=== PATIENT | male | born 1960 | race Caucasian/White ===

== ENCOUNTER 2016-12-18 09:37 | Inpatient (IN) | payer OTHER ==
[2016-12-18 10:15] VITALS: BMI 29.7
--- NOTE | 2016-12-18 15:30 | HP ---
CIWA Score - CIWA Score Nausea/Vomitin Muscle Tremors: 2 Anxiety: 0-No Anxiety, at Ease Agitation: 0-Normal Activity Paroxysmal Sweats: 2 Orientation: 4Disoriented Place/Person Tacttile Disturbances: 2-Mild Itch/Numbness/Burn Auditory Disturbances: 2-Mild Harshness/Frighten Visual Disturbances: 2-Mild Sensitivity Headache: 2-Mild CIWA-Ar Total Score: 21 Admission ROS BHS - HPI Chief Complaint: Pt. is here to Detox from Alcohol. Allergies/Adverse Reactions: Allergies Allergy/AdvReac Type Severity Reaction Status Date / Time No Known Allergies Allergy Verified 12/18/16 10:37 History of Present Illness: Pt. is a 55 YO male here to Detox from Alcohol. This is pt.'s first Detox admission at [facility]. Longest period of sobriety: 5 days. 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 / Assessment.) - Ebola screening Have you traveled outside of the country in the last 21 days: No Have you had contact with anyone from an Ebola affected area: No Have you been sick,other than usual withdrawal symptoms: No Do you have a fever: No - Review of Systems Constitutional: Diaphoresis, Loss of Appetite, Malaise, Night Sweats, Changes in sleep, Unexplained wgt Loss EENT: reports: Dental Problems (Several missing teeth.) Respiratory: reports: No Symptoms reported Cardiac: reports: No Symptoms Reported GI: reports: Diarrhea, Nausea, Poor Appetite, Vomiting, Abdominal cramping, Other (GERD) : reports: No Symptoms Reported Musculoskeletal: reports: Joint Swelling, Neck Pain (Bilateral lower legs and feet (pt.reports that he has been living in [address] and that he has been spending a great deal of time standing lately).) Integumentary: reports: No Symptoms Reported Neuro: reports: Headache, Seizure, Tremors Endocrine: reports: No Symptoms Reported Hematology: reports: No Symptoms Reported Psychiatric: reports: Judgement Intact, Mood/Affect Appropiate, Anxious, Depressed (No previous meds.) Other Systems: Reviewed and Negative Patient History - Patient Medical History Hx Anemia: No Hx Asthma: No Hx Chronic Obstructive Pulmonary Disease (COPD): No Hx Cancer: No Hx Cardiac Disorders: No Hx Congestive Heart Failure: No Hx Hypertension: Yes (No meds.) Hx Hypercholesterolemia: Yes (No meds.) Hx Pacemaker: No HX Cerebrovascular Accident: No Hx Seizures: No Hx Dementia: No Hx Diabetes: No Hx Gastrointestinal Disorders: No (GERD.) Hx Liver Disease: Yes (Cirrhosis.) Hx Genitourinary Disorders: No Hx Sexually Transmitted Disorders: No Hx Renal Disease (ESRD): No Hx Thyroid Disease: No Hx Human Immunodeficiency Virus (HIV): No Hx Hepatitis C: No Hx Depression: Yes (No treatment.) Hx Suicide Attempt: Yes (thought of jumping off window 4 mos. ago; PT. DENIES CURRENT SI/HI.) Hx Bipolar Disorder: No Hx Schizophrenia: No Other Medical History: DENIES. - Patient Surgical History Past Surgical History: Yes Hx Neurologic Surgery: No Hx Cataract Extraction: No Hx Cardiac Surgery: No Hx Lung Surgery: No Hx Breast Surgery: No Hx Breast Biopsy: No Hx Abdominal Surgery: No Hx Appendectomy: No Hx Cholecystectomy: No Hx Genitourinary Surgery: No Hx Section: No Hx Orthopedic Surgery: Yes (fx, left hand in 07/26/1993) Anesthesia Reaction: No - PPD History Previous Implant?: Yes Documented Results: Negative w/o proof Implanted On Prior R Admission?: No PPD to be Administered?: Yes - Reproductive History Patient is a Female of Child Bearing Age (11 -55 yrs old): No (PATIENT IS MALE.) - Smoking Cessation Smoking history: Never smoked Have you smoked in the past 12 months: No Cigars Per Day: 0 Hx Chewing Tobacco Use: No Initiated information on smoking cessation: No - Substance & Tx. History Hx Alcohol Use: Yes Hx Substance Use: Yes Substance Use Type: Alcohol Hx Substance Use Treatment: No - Substances Abused Alcohol-vodka Route: Oral Frequency: Daily Amount used: 2-3 pts. Age of first use: 17 Date of Last Use: 12/17/16 Family Disease History - Family Disease History Family History: Denies Admission Physical Exam BHS - Vital Signs Vital Signs: Vital Signs - 24 hr 12/18/16 10:08 Temperature 95.7 F L Pulse Rate 84 Respiratory 20 Rate Blood Pressure 147/95 - Physical General Appearance: Yes: No Apparent Distress, Nourished, Appropriately Dressed , Tremorous, Anxious HEENTM: Yes: Hearing grossly Normal, Normocephalic, Normal Voice, ABBY, Pharynx Normal Respiratory: Yes: Chest Non-Tender, Lungs Clear, No Respiratory Distress, No Accessory Muscle Use Neck: Yes: No masses,lesions,Nodules, Supple, Trachea in good position Breast: Yes: Breast Exam Deferred Cardiology: Yes: Regular Rhythm, Regular Rate, S1, S2 Abdominal: Yes: Normal Bowel Sounds, Non Tender, Soft, Protuberent Genitourinary: Yes: Within Normal Limits Back: Yes: Decreased Range of Motion Musculoskeletal: Yes: Gait Steady, Other Extremities: Yes: Tremors, Other (Mild swelling noted in bilateral legs. Patient reports that swelling started several days ago and that he feels discomfort in bilateral lower legs and in the soles of bilateral feet primarily when walking or stanidng for prolonged periods. No redness or skin wounds noted in affected areas.) Neurological: Yes: Alert, Normal Mood/Affect, Normal Response, Disoriented (To Current location.) Integumentary: Yes: Normal Color, Dry, Warm Lymphatic: Yes: Within Normal Limits - Diagnostic (1) Alcohol dependence with uncomplicated withdrawal Current Visit: Yes Status: Acute (2) History of hypertension Current Visit: Yes Status: Suspected (3) Depression (emotion) Current Visit: Yes Status: Chronic Qualifiers: Depression Type: unspecified Qualified Code(s): F32.9 - Major depressive disorder, single episode, unspecified Comment: No medication. (4) GERD (gastroesophageal reflux disease) Current Visit: Yes Status: Chronic Qualifiers: Esophagitis presence: esophagitis presence not specified Qualified Code(s): K21.9 - Gastro-esophageal reflux disease without esophagitis (5) Liver cirrhosis Current Visit: Yes Status: Suspected Qualifiers: Hepatic cirrhosis type: unspecified hepatic cirrhosis Ascites presence : without ascites Qualified Code(s): K74.60 - Unspecified cirrhosis of liver (6) Heart murmur Current Visit: Yes Status: Chronic Cleared for Admission BHS - Detox or Rehab [facility] Level of Care: Medically Managed Detox Regimen/Protocol: Librium [facility] Breath Alcohol Content Breath Alcohol Content: 0 Urine Drug Screen - Results Drug Screen Negative: Yes
[2016-12-18] MEDS ORDERED: MENTHOL/PHENOL 1 EACH UD MM PRN (16:36)
[2016-12-18] MEDS ORDERED: chlordiazePOXIDE HCL 25 MG CAPSULE PO ONE (16:36)
[2016-12-18] MEDS ORDERED: LOPERAMIDE HCL 2 MG CAPSULE PO PRN (16:36)
[2016-12-18] MEDS ORDERED: chlordiazePOXIDE HCL 25 MG CAPSULE PO PRN (16:36)
[2016-12-18] MEDS ORDERED: MAG HYDROX/AL HYDROX/SIMETH 30 ML UNIT-DOSE CUP PO PRN (16:36)
[2016-12-18] MEDS ORDERED: IBUPROFEN 400 MG TABLET (FP) PO PRN (16:36)
[2016-12-18] MEDS ORDERED: MAGNESIUM CITRATE 300 ML BOTTLE PO PRN (16:36)
[2016-12-18] MEDS ORDERED: MAGNESIUM HYDROX 2400MG/30ML ORAL SUSPENSION 30 ML CUP PO PRN (16:36)
[2016-12-18] MEDS ORDERED: diphenhydrAMINE HCL 50 MG CAPSULE PO PRN (16:36)
[2016-12-18] MEDS ORDERED: guaiFENesin/D-METHORPHAN HB 10 ML UNIT-DOSE CUPS PO PRN (16:36)
[2016-12-18] MEDS ORDERED: ACETAMINOPHEN 325 MG TABLET (FP) PO PRN (16:36)
[2016-12-18] MEDS ORDERED: hydrOXYzine PAMOATE 50 MG CAPSULE (FP) PO PRN (16:36)
[2016-12-18] MEDS ORDERED: P-EPHED 60MG/TRIPROLIDI 2.5MG TABLET PO PRN (16:36)
[2016-12-18] MEDS: chlordiazePOXIDE HCL 25 MG CAPSULE PO SCH ×2 (18:50→22:23)
[2016-12-18] MEDS: THIAMINE HCL 100 MG TABLET (FP) PO SCH (22:23)
[2016-12-18] MEDS: RANITIDINE HCL 150 MG TABLET (FP) PO SCH (22:23)
[2016-12-19 00:35] LABS: URINE APPEARANCE CLEAR; URINE BILIRUBIN NEGATIVE (NEGATIVE); URINE BLOOD NEGATIVE (NEGATIVE); URINE COLOR LTYELLOW; URINE GLUCOSE (UA) NEGATIVE (NEGATIVE); URINE KETONE NEGATIVE (NEGATIVE); URINE LEUK ESTERASE NEGATIVE (NEGATIVE); URINE NITRITE NEGATIVE (NEGATIVE); URINE PROTEIN NEGATIVE (NEGATIVE); URINE UROBILINOGEN NEGATIVE mg/dL (0.2-1.0)
[2016-12-19] MEDS: chlordiazePOXIDE HCL 25 MG CAPSULE PO SCH ×4 (05:32→22:02)
--- NOTE | 2016-12-19 09:17 | EKG ---
Test Reason : Blood Pressure : / mmHG Vent. Rate : 074 BPM Atrial Rate : 074 BPM P-R Int : 158 ms QRS Dur : 088 ms QT Int : 388 ms P-R-T Axes : 062 006 030 degrees QTc Int : 430 ms NORMAL SINUS RHYTHM NORMAL ECG NO PREVIOUS ECGS AVAILABLE Confirmed by ARI SCHAFFER MD ([id number]) on 12/19/2016 9:16:48 AM Referred By: Ian Martinez Confirmed By:ARI SCHAFFER MD
[2016-12-19 10:17] LABS: MCH 29.8 pg (25.7-33.7); MCHC 31.8 g/dl (32.0-35.9); MEAN CELL VOLUME 93.8 fl (80-96); MEAN PLT VOLUME 9.4 fl (7.5-11.1); PLATELET COUNT 216 K/MM3 (134-434); RDW 13.2 % (11.9-15.9); WHITE BLOOD COUNT 5.9 K/mm3 (4.0-10.0)
[2016-12-19] MEDS: PRENATAL VITAMINS W/ FOLIC ACID TABLET (FP) PO SCH (10:26)
[2016-12-19] MEDS: RANITIDINE HCL 150 MG TABLET (FP) PO SCH ×2 (10:27→22:03)
[2016-12-19 10:57] LABS: ALBUMIN 3.7 g/dl (3.4-5.0); ALK PHOS 77 U/L (45-117); ANION GAP 5 (8-16); BILIRUBIN,TOTAL 0.5 mg/dL (0.2-1.0); CALCIUM 9.4 mg/dL (8.5-10.1); CO2 34 mmol/L (21-32); CREATININE 0.8 mg/dL (0.7-1.3); GLUCOSE,RANDOM 135 mg/dL (74-106); SGOT/AST 39 U/L (15-37); SGPT/ALT 59 U/L (12-78); TOT PROT 7.5 g/dl (6.4-8.2)
--- NOTE | 2016-12-19 11:03 | PN ---
S CIWA - CIWA Score Nausea/Vomitin Muscle Tremors: 4-Moderate,w/Arms Extend Anxiety: 3 Agitation: 3 Paroxysmal Sweats: 3 Orientation: 0-Oriented Tacttile Disturbances: 1-Very Mild Itch/Numbness Auditory Disturbances: 0-None Visual Disturbances: 0-None Headache: 1-Very Mild CIWA-Ar Total Score: 18 BHS Progress Note (SOAP) Subjective: nausea, sweats, interrupted sleep, anxiety, tremors Objective: 12/19/16 11:03 Vital Signs - 8 hr 12/19/16 12/19/16 12/19/16 03:58 06:28 09:56 Temperature 96.3 F L 97.2 F L Pulse Rate 70 72 Respiratory 18 16 18 Rate Blood Pressure 148/90 134/82 Laboratory Tests 12/19/16 12/19/16 12/19/16 00:01 06:00 06:00 WBC 5.9 RBC 4.64 Hgb 13.8 Hct 43.5 MCV 93.8 MCH 29.8 MCHC 31.8 L RDW 13.2 Plt Count 216 MPV 9.4 Sodium 141 Potassium 4.3 Chloride 102 Carbon Dioxide 34 H Anion Gap 5 L BUN 8 Creatinine 0.8 Creat Clearance w eGFR > 60 Random Glucose 135 H Calcium 9.4 Total Bilirubin 0.5 AST 39 H ALT 59 Alkaline Phosphatase 77 Total Protein 7.5 Albumin 3.7 Urine Color Ltyellow Urine Appearance Clear Urine pH 5.0 Ur Specific [place] 1.015 Urine Protein Negative Urine Glucose (UA) Negative Urine Ketones Negative Urine Blood Negative Urine Nitrite Negative Urine Bilirubin Negative Urine Urobilinogen Negative Ur Leukocyte Esterase Negative Assessment: 12/19/16 11:03 withdrawal sx Plan: cont detox, fluids, encoruage ambualtion
--- NOTE | 2016-12-19 11:14 | CONSULT ---
[facility] Psychiatric Consult - Data Date of interview: 12/19/16 Admission source: [facility] Identifying data: First admission to [facility] for this 55 y/o male seeking detox treatment on for alcohol dependence.Patient is single without children,homeless,unemployed and deprived of any source of income. Substance Abuse History: Confirmed by patient. Smoking Cessation. Smoking history: Never smoked. Have you smoked in the past 12 months: No. Cigars Per Day: 0. Hx Chewing Tobacco Use: No. Initiated information on smoking cessation : No. - Substance & Tx. History. Hx Alcohol Use: Yes. Hx Substance Use: Yes. Substance Use Type: Alcohol. Hx Substance Use Treatment: No. - Substances Abused. Alcohol-vodka. Route: Oral. Frequency: Daily. Amount used: 2-3 pts. Age of first use: 17. Date of Last Use: 12/17/16 Medical History: Significant for hypertension,liver cirrhosis,GERD, hypercholesterolemiaand a history of orthosurgery for a job-related injury to left hand (1993). Psychiatric History: No reported history of psychiatric hospitalizations.Patient denies any antecedent of psychiatric OPD care.Mr Farrar denies history of suicide attempts (admits to ideation to jump out of window 4-5 months ago but no escalation into action). Physical/Sexual Abuse/Trauma History: No history of sexual abuse.Patient reports feeling traumatized by social stressors : homelessness,financial strains ,lack of support from relatives and unemployment. Additional Comment: Drug Screen is negative. Mental Status Exam - Mental Status Exam Alert and Oriented to: Time, Place, Person Cognitive Function: Good Patient Appearance: Well Groomed Mood: Nervous, Withdrawn Affect: Mood Congruent, Constricted Patient Behavior: Fatigued, Appropriate, Cooperative Speech Pattern: Clear, Appropriate (in ghanaian.Cannot communicate in greenlandic) Voice Loudness: Normal Thought Process: Goal Oriented Thought Disorder: Not Present Hallucinations: Denies Suicidal Ideation: Denies Homicidal Ideation: Denies Insight/Judgement: Poor Sleep: Poorly, Difficulty falling asleep Appetite: Fair Muscle strength/Tone: Normal Gait/Station: Normal Psychiatric Findings - Problem List ([place] 1, 2,3) (1) Alcohol dependence with uncomplicated withdrawal Current Visit: Yes Status: Acute (2) Alcohol-induced mood disorder Current Visit: Yes Status: Acute (3) GERD (gastroesophageal reflux disease) Current Visit: Yes Status: Chronic Qualifiers: Esophagitis presence: esophagitis presence not specified Qualified Code(s): K21.9 - Gastro-esophageal reflux disease without esophagitis (4) Heart murmur Current Visit: Yes Status: Chronic (5) History of hypertension Current Visit: Yes Status: Suspected (6) Liver cirrhosis Current Visit: Yes Status: Suspected Qualifiers: Hepatic cirrhosis type: unspecified hepatic cirrhosis Ascites presence : without ascites Qualified Code(s): K74.60 - Unspecified cirrhosis of liver (7) Insomnia Current Visit: Yes Status: Acute - Initial Treatment Plan Initial Treatment Plan: Psychoeducation provided in this session.Detoxification in progress.Patient declines the proposed option for antidepressant medication but agrees to take ambien for his insomnia.Made aware of risk of parasomnias.Observation.
[2016-12-19 12:45] LABS: SICKLE CELL SCREEN NEGATIVE (NEGATIVE)
[2016-12-19] MEDS: THIAMINE HCL 100 MG TABLET (FP) PO SCH (22:02)
[2016-12-20] MEDS: chlordiazePOXIDE HCL 25 MG CAPSULE PO SCH ×2 (05:36→10:25)
[2016-12-20] MEDS: PRENATAL VITAMINS W/ FOLIC ACID TABLET (FP) PO SCH (10:25)
[2016-12-20] MEDS: RANITIDINE HCL 150 MG TABLET (FP) PO SCH ×2 (10:25→22:23)
[2016-12-20] MEDS: BACITRACIN 0.9 GM PACKET TP SCH (13:22)
--- NOTE | 2016-12-20 15:12 | PN ---
[facility] CIWA - CIWA Score Nausea/Vomitin-Mild Nausea/No Vomiting Muscle Tremors: 3 Anxiety: 4-Mod. Anxious/Guarded Agitation: 2 Paroxysmal Sweats: 3 Orientation: 0-Oriented Tacttile Disturbances: 2-Mild Itch/Numbness/Burn Auditory Disturbances: 0-None Visual Disturbances: 0-None Headache: 0-None Present CIWA-Ar Total Score: 15 BHS Progress Note (SOAP) Subjective: Body Aches, sweating. Objective: PT. A & O X 3, OBSERVED AMBULATING ON UNIT. NO ACUTE DISTRESS. PT. DENIES CHEST PAIN. 12/20/16 15:09 Vital Signs Temperature 96.4 F L 12/20/16 14:15 Pulse Rate 92 H 12/20/16 14:15 Respiratory Rate 18 12/20/16 14:15 Blood Pressure 128/84 12/20/16 14:15 O2 Sat by Pulse Oximetry (%) Laboratory Tests 12/19/16 12/19/16 12/19/16 00:01 06:00 06:00 WBC 5.9 RBC 4.64 Hgb 13.8 Hct 43.5 MCV 93.8 MCH 29.8 MCHC 31.8 L RDW 13.2 Plt Count 216 MPV 9.4 Sickle Cell Screen Negative Sodium 141 Potassium 4.3 Chloride 102 Carbon Dioxide 34 H Anion Gap 5 L BUN 8 Creatinine 0.8 Creat Clearance w eGFR > 60 Random Glucose 135 H Calcium 9.4 Total Bilirubin 0.5 AST 39 H ALT 59 Alkaline Phosphatase 77 Total Protein 7.5 Albumin 3.7 Urine Color Ltyellow Urine Appearance Clear Urine pH 5.0 Ur Specific [place] 1.015 Urine Protein Negative Urine Glucose (UA) Negative Urine Ketones Negative Urine Blood Negative Urine Nitrite Negative Urine Bilirubin Negative Urine Urobilinogen Negative Ur Leukocyte Esterase Negative RPR Titer 12/19/16 06:00 WBC RBC Hgb Hct MCV MCH MCHC RDW Plt Count MPV Sickle Cell Screen Sodium Potassium Chloride Carbon Dioxide Anion Gap BUN Creatinine Creat Clearance w eGFR Random Glucose Calcium Total Bilirubin AST ALT Alkaline Phosphatase Total Protein Albumin Urine Color Urine Appearance Urine pH Ur Specific [place] Urine Protein Urine Glucose (UA) Urine Ketones Urine Blood Urine Nitrite Urine Bilirubin Urine Urobilinogen Ur Leukocyte Esterase RPR Titer Nonreactive LABS NOTED. Assessment: 12/20/16 15:09 WITHDRAWAL SYMPTOMS. 12/20/16 15:09 Plan: CONTINUE DETOX. BGM ACBK FOR ELEVATED ADMISSION RANDOM GLUCOSE LEVEL. ENCOURAGED PT. TO KEEP FEET ELEVATED WHILE LYING DOWN TO HELP ALLEVIATE SWELLING IN BILATERAL LOWER LEGS.
[2016-12-20] MEDS: chlordiazePOXIDE 5 MG CAPSULE PO SCH ×2 (17:29→22:23)
[2016-12-20] MEDS: ZOLPIDEM TARTRATE 10 MG TABLET (PARK CARE ONLY) PO PRN (22:23)
[2016-12-20] MEDS: THIAMINE HCL 100 MG TABLET (FP) PO SCH (22:23)
[2016-12-21] MEDS: chlordiazePOXIDE 5 MG CAPSULE PO SCH ×2 (05:14→10:27)
[2016-12-21] MEDS: PRENATAL VITAMINS W/ FOLIC ACID TABLET (FP) PO SCH (10:27)
[2016-12-21] MEDS: BACITRACIN 0.9 GM PACKET TP SCH (10:27)
[2016-12-21] MEDS: RANITIDINE HCL 150 MG TABLET (FP) PO SCH ×2 (10:31→22:18)
--- NOTE | 2016-12-21 14:51 | PN ---
BHS Progress Note (SOAP) Subjective: Sweating, Stomach Cramping, Tremors, Interrupted sleep. Objective: PT. A & O X 2 (DISORIENTED ABOUT CURRENT LOCATION). PT. OBSERVED AMBULATING ON UNIT. NO ACUTE DISTRESS. 12/21/16 14:46 Vital Signs Temperature 96.5 F L 12/21/16 14:25 Pulse Rate 89 12/21/16 14:25 Respiratory Rate 18 12/21/16 14:25 Blood Pressure 135/93 12/21/16 14:25 O2 Sat by Pulse Oximetry (%) Laboratory Tests 12/19/16 12/19/16 12/19/16 00:01 06:00 06:00 WBC 5.9 RBC 4.64 Hgb 13.8 Hct 43.5 MCV 93.8 MCH 29.8 MCHC 31.8 L RDW 13.2 Plt Count 216 MPV 9.4 Sickle Cell Screen Negative Sodium 141 Potassium 4.3 Chloride 102 Carbon Dioxide 34 H Anion Gap 5 L BUN 8 Creatinine 0.8 Creat Clearance w eGFR > 60 POC Glucometer Random Glucose 135 H Calcium 9.4 Total Bilirubin 0.5 AST 39 H ALT 59 Alkaline Phosphatase 77 Total Protein 7.5 Albumin 3.7 Urine Color Ltyellow Urine Appearance Clear Urine pH 5.0 Ur Specific [place] 1.015 Urine Protein Negative Urine Glucose (UA) Negative Urine Ketones Negative Urine Blood Negative Urine Nitrite Negative Urine Bilirubin Negative Urine Urobilinogen Negative Ur Leukocyte Esterase Negative RPR Titer 12/19/16 12/21/16 06:00 08:19 WBC RBC Hgb Hct MCV MCH MCHC RDW Plt Count MPV Sickle Cell Screen Sodium Potassium Chloride Carbon Dioxide Anion Gap BUN Creatinine Creat Clearance w eGFR POC Glucometer 133 Random Glucose Calcium Total Bilirubin AST ALT Alkaline Phosphatase Total Protein Albumin Urine Color Urine Appearance Urine pH Ur Specific [place] Urine Protein Urine Glucose (UA) Urine Ketones Urine Blood Urine Nitrite Urine Bilirubin Urine Urobilinogen Ur Leukocyte Esterase RPR Titer Nonreactive LABS NOTED. Assessment: 12/21/16 14:49 WITHDRAWAL SYMPTOMS. Plan: CONTINUE DETOX.
[2016-12-21] MEDS: chlordiazePOXIDE HCL 10 MG CAPSULE PO SCH ×2 (16:53→22:18)
[2016-12-21] MEDS: THIAMINE HCL 100 MG TABLET (FP) PO SCH (22:18)
[2016-12-21] MEDS: ZOLPIDEM TARTRATE 10 MG TABLET (PARK CARE ONLY) PO PRN (22:18)
[2016-12-22] MEDS: chlordiazePOXIDE HCL 10 MG CAPSULE PO SCH ×2 (05:56→10:22)
[2016-12-22] MEDS: PRENATAL VITAMINS W/ FOLIC ACID TABLET (FP) PO SCH (10:22)
[2016-12-22] MEDS: RANITIDINE HCL 150 MG TABLET (FP) PO SCH ×2 (10:22→22:23)
[2016-12-22] MEDS: BACITRACIN 0.9 GM PACKET TP SCH (10:22)
--- NOTE | 2016-12-22 12:58 | PN ---
BHS Progress Note (SOAP) Subjective: Body Aches, Interrupted Sleep, H/A, Sweating. Objective: PT. A & O X 2 (DISORIENTED ABOUT CURRENT LOCATION). PT. OBSERVED AMBULATING ON UNIT. NO ACUTE DISTRESS. 12/22/16 12:52 Vital Signs Temperature 97.0 F L 12/22/16 09:12 Pulse Rate 103 H 12/22/16 09:12 Respiratory Rate 20 12/22/16 09:12 Blood Pressure 140/96 12/22/16 09:12 O2 Sat by Pulse Oximetry (%) Laboratory Tests 12/19/16 12/19/16 12/19/16 00:01 06:00 06:00 WBC 5.9 RBC 4.64 Hgb 13.8 Hct 43.5 MCV 93.8 MCH 29.8 MCHC 31.8 L RDW 13.2 Plt Count 216 MPV 9.4 Sickle Cell Screen Negative Sodium 141 Potassium 4.3 Chloride 102 Carbon Dioxide 34 H Anion Gap 5 L BUN 8 Creatinine 0.8 Creat Clearance w eGFR > 60 POC Glucometer Random Glucose 135 H Calcium 9.4 Total Bilirubin 0.5 AST 39 H ALT 59 Alkaline Phosphatase 77 Total Protein 7.5 Albumin 3.7 Urine Color Ltyellow Urine Appearance Clear Urine pH 5.0 Ur Specific [place] 1.015 Urine Protein Negative Urine Glucose (UA) Negative Urine Ketones Negative Urine Blood Negative Urine Nitrite Negative Urine Bilirubin Negative Urine Urobilinogen Negative Ur Leukocyte Esterase Negative RPR Titer 12/19/16 12/21/16 12/22/16 06:00 08:19 05:56 WBC RBC Hgb Hct MCV MCH MCHC RDW Plt Count MPV Sickle Cell Screen Sodium Potassium Chloride Carbon Dioxide Anion Gap BUN Creatinine Creat Clearance w eGFR POC Glucometer 133 119 Random Glucose Calcium Total Bilirubin AST ALT Alkaline Phosphatase Total Protein Albumin Urine Color Urine Appearance Urine pH Ur Specific [place] Urine Protein Urine Glucose (UA) Urine Ketones Urine Blood Urine Nitrite Urine Bilirubin Urine Urobilinogen Ur Leukocyte Esterase RPR Titer Nonreactive LABS NOTED. Assessment: 12/22/16 12:53 WITHDRAWAL SYMPTOMS. Plan: CONTINUE DETOX. PT. ORIGINALLY SCHEDULED TO BE DISCHARGED TODAY. HOWEVER, ARRANGEMENTS PREVIOUSLY MADE TO HAVE PATIENT TRANSFERRED FOR INTAKE AT [facility] OUTPATIENT PROGRAM TOMORROW (12/23/2016; UNABLE TO HAVE INTAKE TODAY BECAUSE TODAY IS A HOLIDAY). PATIENT IS CURRENTLY HOMELESS, HE WILL REMAIN ON DETOX UNIT UNTIL TOMORROW IN ORDER TO THEN BE TRANSFERRED TO [facility].
[2016-12-22] MEDS: THIAMINE HCL 100 MG TABLET (FP) PO SCH (22:23)
--- NOTE | 2016-12-23 08:52 | DS ---
[facility] Detox Discharge Summary Admission Date: 12/18/16 Discharge Date: 12/23/16 - History Present History: Alcohol Dependence Additional Comments: DETOX COMPLETED.NAD. ALERT O X 3. PT INSTRUCTED TO FOLLOW UP WITH PMD AT [facility] FOR MEDICAL MANAGEMENT OF COMORBID CONDITIONS AND TO PURSUE AFTERCARE/SOBRIETY. Pertinent Past History: GERD HYPERTENSION HYPERCHOLESTEROLEMIA LIVER CIRRHOSIS - Physical Exam Results Vital Signs: Vital Signs Temperature 97.1 F L 12/23/16 06:27 Pulse Rate 85 12/23/16 06:27 Respiratory Rate 18 12/23/16 06:27 Blood Pressure 131/88 12/23/16 06:27 O2 Sat by Pulse Oximetry (%) Pertinent Admission Physical Exam Findings: WITHDRAWAL SX Laboratory Last Values WBC 5.9 K/mm3 (4.0-10.0) 12/19/16 06:00 RBC 4.64 M/mm3 (4.00-5.60) 12/19/16 06:00 Hgb 13.8 GM/dL (11.7-16.9) 12/19/16 06:00 Hct 43.5 % (35.4-49) 12/19/16 06:00 MCV 93.8 fl (80-96) 12/19/16 06:00 MCH 29.8 pg (25.7-33.7) 12/19/16 06:00 MCHC 31.8 g/dl (32.0-35.9) L 12/19/16 06:00 RDW 13.2 % (11.9-15.9) 12/19/16 06:00 Plt Count 216 K/MM3 (134-434) 12/19/16 06:00 MPV 9.4 fl (7.5-11.1) 12/19/16 06:00 Sickle Cell Screen Negative (NEGATIVE) 12/19/16 06:00 Sodium 141 mmol/L (136-145) 12/19/16 06:00 Potassium 4.3 mmol/L (3.5-5.1) 12/19/16 06:00 Chloride 102 mmol/L (98-107) 12/19/16 06:00 Carbon Dioxide 34 mmol/L (21-32) H 12/19/16 06:00 Anion Gap 5 (8-16) L 12/19/16 06:00 BUN 8 mg/dL (7-18) 12/19/16 06:00 Creatinine 0.8 mg/dL (0.7-1.3) 12/19/16 06:00 Creat Clearance w eGFR > 60 (>60) 12/19/16 06:00 POC Glucometer 110 UNITS (()) 12/23/16 05:35 Random Glucose 135 mg/dL (74-106) H 12/19/16 06:00 Calcium 9.4 mg/dL (8.5-10.1) 12/19/16 06:00 Total Bilirubin 0.5 mg/dL (0.2-1.0) 12/19/16 06:00 AST 39 U/L (15-37) H 12/19/16 06:00 ALT 59 U/L (12-78) 12/19/16 06:00 Alkaline Phosphatase 77 U/L (45-117) 12/19/16 06:00 Total Protein 7.5 g/dl (6.4-8.2) 12/19/16 06:00 Albumin 3.7 g/dl (3.4-5.0) 12/19/16 06:00 Urine Color Ltyellow 12/19/16 00:01 Urine Appearance Clear 12/19/16 00:01 Urine pH 5.0 (5.0-8.0) 12/19/16 00:01 Ur Specific [place] 1.015 (1.005-1.025) 12/19/16 00:01 Urine Protein Negative (NEGATIVE) 12/19/16 00:01 Urine Glucose (UA) Negative (NEGATIVE) 12/19/16 00:01 Urine Ketones Negative (NEGATIVE) 12/19/16 00:01 Urine Blood Negative (NEGATIVE) 12/19/16 00:01 Urine Nitrite Negative (NEGATIVE) 12/19/16 00:01 Urine Bilirubin Negative (NEGATIVE) 12/19/16 00:01 Urine Urobilinogen Negative mg/dL (0.2-1.0) 12/19/16 00:01 Ur Leukocyte Esterase Negative (NEGATIVE) 12/19/16 00:01 RPR Titer Nonreactive (NONREACTIVE) 12/19/16 06:00 - Treatment Hospital Course: Detox Protocol Followed, Detoxed Safely, Responded well, Discharged Condition Good - Medication Discharge Medications: Ambulatory Orders NK [No Known Home Medication] 08/31/17 - Diagnosis (1) Alcohol dependence with uncomplicated withdrawal Current Visit: Yes Status: Acute (2) GERD (gastroesophageal reflux disease) Current Visit: Yes Status: Chronic Qualifiers: Esophagitis presence: esophagitis presence not specified Qualified Code(s): K21.9 - Gastro-esophageal reflux disease without esophagitis (3) History of hypertension Current Visit: Yes Status: Suspected (4) Liver cirrhosis Current Visit: Yes Status: Suspected Qualifiers: Hepatic cirrhosis type: unspecified hepatic cirrhosis Ascites presence : without ascites Qualified Code(s): K74.60 - Unspecified cirrhosis of liver - AMA Did Patient Leave Against Medical Advice: No
[2016-12-23 09:05] VITALS: BP 129/89; PULSE 97; TEMP 97.4
[2016-12-23] MEDS: BACITRACIN 0.9 GM PACKET TP SCH (10:29)
[2016-12-23] MEDS: RANITIDINE HCL 150 MG TABLET (FP) PO SCH (10:29)
[2016-12-23] MEDS: PRENATAL VITAMINS W/ FOLIC ACID TABLET (FP) PO SCH (10:30)
== END 2016-12-23 12:35 | disposition home or self-care (01) | DRG 775 ==
LOC: YASAS 09:37 → Y3N 11:48
PROVIDERS: ADMIT Internal Medicine Addiction Medicine; ATTEND Internal Medicine Addiction Medicine
PROC: HZ2ZZZZ Detoxification Services for Substance Abuse Treatment (ICD-10-PCS; principal; 2016-12-18)
DX: F10.230 Alcohol dependence with withdrawal, uncomplicated (principal); F10.24 Alcohol dependence with alcohol-induced mood disorder; K21.9 Gastro-esophageal reflux disease without esophagitis; R01.1 Cardiac murmur, unspecified; K74.60 Unspecified cirrhosis of liver; G47.00 Insomnia, unspecified; Z86.79 Personal history of other diseases of the circulatory system; Z91.5 Personal history of self-harm
CPT/HCPCS: 36415; 80053; 81003; 85027; 85660; 86593; 93005; 93010